=== PATIENT | female | born 1965 | race Caucasian/White ===

== ENCOUNTER 2021-05-15 10:58 | Outpatient (CLI) | payer BC, SELFPAY ==
--- NOTE | ~2021-05-15 | XR_ITS ---
EXAMINATION: XR sacroiliac joints min 3V INDICATION: Low back pain TECHNIQUE: Three views of the sacroiliac joints are obtained. COMPARISON: None available FINDINGS: Bone alignment is normal. There is no fracture. There is no abnormal sclerosis or erosion o f the sacroiliac joints. There is mild to moderate osteoarthritis of the hips. A surgical staple line is noted in the pelvis. IMPRESSION: 1. No acute osseous abnormality. Reviewed, dictated and finalized at location B. ION CONSULTANT
--- NOTE | ~2021-05-15 | XR_ITS ---
EXAMINATION: XR lumbar spine 2-3V DATE: 05/15/2021 11:44 INDICATION: Low back pain TECHNIQUE: Anteroposterior and lateral views of the lumbar spine, and cone-down lateral view of the l umbosacral junction were obtained. COMPARISON: None. FINDINGS: There is no fracture, dislocation, or subluxation. Small degenerative osteophytes project f rom the anterior endplates of multiple vertebral bodies. The vertebral body heights and intervertebra l disc spaces are maintained. There is mild facet osteoarthritis of the lower lumbar spine. IMPRESSION: 1. Mild lumbar spondylosis without acute findings. Reviewed, dictated and finalized at location B. CAPTAIN
--- NOTE | ~2021-05-15 | XR_ITS ---
XR hip RT min 2V 05/15/2021 11:44 Indication: Right hip pain Procedure: 2 views right hip Comparison: No prior studies for comparison. Findings: There is moderate osteoarthritis of the right hip. No fracture, subluxation or dislocation. No significant soft tissue abnormality. No foreign bodies. Impression: 1: Moderate osteoarthritis of the right hip. Reviewed, dictated and finalized at location A. S [employer] Impression: 1: Moderate osteoarthritis of the right hip.
== END 2021-05-15 10:59 ==
PROVIDERS: PCP Emergency Medicine; Visit Provider Emergency Medicine
DX: M47.896 Other spondylosis, lumbar region (principal); M47.816 Spondylosis without myelopathy or radiculopathy, lumbar region; M16.11 Unilateral primary osteoarthritis, right hip
CPT/HCPCS: 72100; 72202; 73502

== ENCOUNTER 2023-03-06 00:25 | Day surgery (SDC) | payer BC, SELFPAY ==
[2023-03-06 06:43] VITALS: BP 152/91; PULSE 87; RESP 16; TEMP 35.4; O2SAT 100; BMI 30.1
[2023-03-06] MEDS: LACTATED RINGERS 1,000 ML 150 ML IV CONT (06:50)
--- NOTE | 2023-03-06 07:11 | P.PNAN_ITS ---
Anes - Initial Pre Proc Eval Procedure: Operation Date: 03/06/23 08:00 Proposed Procedures p Screening Colonoscopy - Priyank Morelos MD Date/Time: 03/06/23 07:11 Surgeon: Priyank Morelos MD Pre Op Diagnosis: neoplasm screening Patient Data Age: 57 Gender: F Height: 1.63 m Weight: 79.7 kg Last Vital Signs Temp 35.4 C L 03/06/23 06:43 Pulse 87 03/06/23 06:43 Resp 16 03/06/23 06:43 BP 152/91 H 03/06/23 06:43 Pulse Ox 100 03/06/23 06:43 O2 Del Method Room Air 03/06/23 06:43 Allergies Allergy/AdvReac Type Severity Reaction Status Date / Time No Known Allergies Allergy Verified 03/06/23 06:42 Home Medications Medication Instructions Recorded Confirmed Type anastrozole 1 mg tablet 1 mg PO DAILY 02/21/23 03/06/23 History irbesartan 150 mg tablet 150 mg PO DAILY 02/21/23 03/06/23 History Patient hx anesthesia problems: none Family hx anesthesia problems: none Results Review: All pre-operative results and documents have been reviewed as part of the pre- operative evaluation. PMFSH Social History Social History Smoking packs per day: 1 Smoking cigarettes per day: 20.0 Years smoked: 40 Smoking pack-years: 40.00 Smoking status: Current every day smoker Drinks per week: 4 Anes - Eval Final PreProcedure Day of Procedure 03/06/23 07:11 Patient weight: obese Heart: regular rate and rhythm Lungs: clear to auscultation Airway: Mallampati scale class II Neurological: alert and oriented Last oral intake: >/= 8 hours ASA classification: III Emergent: no Anesthetic plan: proceed Anesthesia type and monitoring: general GIVS and standard monitoring Results Review: All pre-operative results and documents have been reviewed as part of the pre- operative evaluation. Informed Consent: The patient's anesthetic plan and its attendant risks and benefits were discussed with the patient/family/POA. Questions were solicited and answers provided to the satisfaction of the patient/family/POA.
--- NOTE | 2023-03-06 07:55 | P.HP_ITS ---
History of Present Illness History of Present Illness Consent: Risks, benefits, and alternatives have been discussed and questions answered. Patient agrees to proceed with procedure. Chief complaint: neoplasm screening Narrative: Yanely Langford is a 57 year old female here for first screening colonoscopy Review of Systems Constitutional: Constitutional: Denies headache(s) and Denies weakness Eyes: Eyes: Denies blurry vision ENT: Reports Normal hearing present, Denies headache(s) and Denies neck pain Cardiovascular: Cardiovascular: Denies chest pain and Denies dyspnea Respiratory: Respiratory: Denies dyspnea Gastrointestinal: Gastrointestinal: Reports no additional gastrointestinal complaints Genitourinary: Genitourinary: Denies dysuria Musculoskeletal: Musculoskeletal: Denies neck pain Integumentary/Breasts: Skin/Breast: Denies dry skin Neurologic: Reports Normal hearing present, Denies headache(s) and Denies weakness Psychiatric: Psychiatric: Denies anxiety Endocrine: Endocrine: Denies change in body appearance Hematologic/Lymphatic: Hematologic/Lymphatic: Denies easy bleeding Allergic/Immunologic: Allergic/Immunologic: Denies urticaria [facility] Past Medical History Medical History (Updated 03/06/23 @ 07:56 by Priyank Morelos MD) Colon cancer screening Social History Social History Smoking packs per day: 1 Smoking cigarettes per day: 20.0 Years smoked: 40 Smoking pack-years: 40.00 Smoking status: Current every day smoker Drinks per week: 4 Meds Home Medications and Allergies Home Medications Medication Instructions Recorded Confirmed Type anastrozole 1 mg tablet 1 mg PO DAILY 02/21/23 03/06/23 History irbesartan 150 mg tablet 150 mg PO DAILY 02/21/23 03/06/23 History Allergies Allergy/AdvReac Type Severity Reaction Status Date / Time No Known Allergies Allergy Verified 03/06/23 06:42 Vital Signs Vital Signs - 24 hr 03/06/23 06:43 Temperature 95.7 F L Pulse Rate 87 Respiratory Rate 16 Blood Pressure 152/91 H Pulse Oximetry 100 Oxygen Delivery Room Air Exam Const: General: comfortable and no acute distress HENMT: Face/Nose/Sinus: Normal nares present Eyes: General: appearance normal, both eyes and all related structures Neck: Neck: no JVD Resp: Auscultation: clear to auscultation bilaterally Cardio: Rate: regular rate Rhythm: regular rhythm GI: Inspection: non-distended GI Palp: Yes Soft to palpation Skin: General skin exam: normal color Neuro: General: gait normal Speech: normal speech Extrem: General: normal to inspection Psych: Mental Status: mental status grossly normal Assessment and Plan Assessment and plan (1) Colon cancer screening: Code(s): Z12.11 - Encounter for screening for malignant neoplasm of colon Status: Acute Assessment and Plan: colonoscopy
[2023-03-06 08:17] VITALS: BP 111/64; PULSE 70; RESP 23; O2SAT 99
[2023-03-06 08:27] VITALS: BP 120/70; PULSE 75; RESP 22; O2SAT 94
[2023-03-06 08:37] VITALS: BP 128/91; PULSE 65; RESP 18; O2SAT 96
== END 2023-03-06 08:43 | disposition home or self-care (01) ==
PROVIDERS: PCP Emergency Medicine; Visit Provider Internal Medicine Gastroenterology
PROC: 0DJD8ZZ Inspection of Lower Intestinal Tract, Via Natural or Artificial Opening Endoscopic (ICD-10-PCS; CPT 45378; principal; 2023-03-06 08:00)
DX: Z12.11 Encounter for screening for malignant neoplasm of colon (principal); K62.1 Rectal polyp; K57.30 Diverticulosis of large intestine without perforation or abscess without bleeding; D17.5 Benign lipomatous neoplasm of intra-abdominal organs; K64.8 Other hemorrhoids; Z98.0 Intestinal bypass and anastomosis status; Z90.49 Acquired absence of other specified parts of digestive tract; Z79.811 Long term (current) use of aromatase inhibitors; F17.210 Nicotine dependence, cigarettes, uncomplicated; E66.9 Obesity, unspecified; Z68.30 Body mass index [BMI] 30.0-30.9, adult
CPT/HCPCS: 45385; 88305; J2704; J7120

== ENCOUNTER 2023-09-17 09:59 | Emergency (ER) | payer BC, SELFPAY ==
[2023-09-17 10:06] VITALS: BP 150/92; PULSE 92; RESP 18; TEMP 36.6; O2SAT 97
[2023-09-17] MEDS: predniSONE 20 MG TABLET 40 MG PO (10:40)
--- NOTE | 2023-09-17 10:56 | ED.EXTPRO ---
HPI - Extremity Problem General Chief complaint: Extremity Problem,Nontraumatic Stated complaint: left leg pain Time Seen by Provider: 09/17/23 10:12 History of Present Illness HPI Narrative: Patient presenting here with several days of left knee pain/paresthesias radiating down to her foot; denies any recent injuries, no swelling to her legs, she had similar symptoms back when she was on chemotherapy but has not been on chemo for a while and not taking any medications currently. No pain above her knee. Related Data Home Medications Medication Instructions Recorded Confirmed anastrozole 1 mg tablet 1 mg PO DAILY 02/21/23 03/06/23 irbesartan 150 mg tablet 150 mg PO DAILY 02/21/23 03/06/23 Allergies Allergy/AdvReac Type Severity Reaction Status Date / Time No Known Allergies Allergy Verified 09/17/23 10:00 Review of Systems Review of Systems: CONST: No fever. HEENT: No sore throat C/V: No chest pain RESP: No cough GI: no abdominal pain : No dysuria. M/S: Left knee/leg discomfort SKIN: No rash. NEURO: Paresthesia down left knee PSYCH: [No depression] [facility] Past Medical History Medical History (Updated 09/17/23 @ 10:30 by Elaine Morrissey MD) Colon cancer screening Social History Social History Smoking packs per day: 1 Smoking cigarettes per day: 20.0 Years smoked: 40 Smoking pack-years: 40.00 Smoking status: Current every day smoker Drinks per week: 4 Exam Narrative: EXAMINATION OF ORGAN SYSTEMS/BODY AREAS: Constitutional: Vital signs per nursing GENERAL:[No acute distress, non-toxic appearing.] HEAD: Normal with no signs of head trauma. EYES: EOMI, conjunctiva normal ENT: Hearing grossly intact LUNGS: Nonlabored breathing. HEART: [Regular rate and rhythm], normal 2+ DP pulses ABD: Nondistended EXT: Normal range of motion; no laxity to the knee, no swelling or tenderness or deformity. No swelling of left lower extremity compared to right. His strength. SKIN: Keratotic lesion right anterior lower leg NEURO: [Alert and oriented x 3. Some paresthesias to anterior lower leg; normal sensation above knee. Normal strength; no foot drop] PSYCH: Normal affect Course Vital Signs Vital signs: Vital Signs Temperature 97.8 F 09/17/23 10:06 Pulse Rate 92 09/17/23 10:06 Respiratory Rate 18 09/17/23 10:06 Blood Pressure 150/92 H 09/17/23 10:06 Pulse Oximetry 97 09/17/23 10:06 Temperature 97.8 F 09/17/23 10:06 Pulse Rate 92 09/17/23 10:06 Respiratory Rate 18 09/17/23 10:06 Blood Pressure 150/92 H 09/17/23 10:06 Pulse Oximetry 97 09/17/23 10:06 MDM - Extremity (Nontraumatic) MDM Narrative Medical decision making narrative: 58-year-old female with history of breast cancer in remission with neuropathy in the past presents here with new onset paresthesias from her left knee down to her foot, no recent injuries, on exam she has normal range of motion, normal motor strength, normal reflexes to the left lower extremity, with good strong DP pulse and perfusion, no swelling compared to right so very unlikely DVT, but she does endorse some paresthesias on palpation to her left lower given the distribution of symptoms I suspect peripheral cause, I will have patient follow-up with orthopedics and neurology for this and trial a course of gabapentin and steroids for her symptoms. She also has a keratotic lesion to her right mejia that she tells me has been ongoing for months, I did let her know she needs to follow up with her primary care doctor for this, given the chronicity I am concerned for possible malignancy, patient verbalizes agreement and understanding. Discharge Plan Discharge Clinical Impression: Acute knee pain, Peripheral neuropathy Patient Disposition: Home, Self-Care Condition: Stable Instructions: Antibiotic Form, Peripheral Neuropathy (ED), Knee Pain (ED) Additional Instructions: Please follow-up with orthopedic doctor an
== END 2023-09-17 10:47 | disposition home or self-care (01) ==
PROVIDERS: Emergency Provider Emergency Medicine; PCP Emergency Medicine
DX: M25.562 Pain in left knee (principal); G62.9 Polyneuropathy, unspecified; F17.210 Nicotine dependence, cigarettes, uncomplicated; Z92.21 Personal history of antineoplastic chemotherapy
CPT/HCPCS: 99283; J7512